=== PATIENT | female | born 1995 | race Caucasian/White ===

== ENCOUNTER 2017-07-17 16:40 | Emergency (ER) | payer BC | END 2017-07-17 19:18 | disposition home or self-care (01) | LOC: D.ER 16:40 | DX: S93.401A Sprain of unspecified ligament of right ankle, initial encounter (principal); V49.9XXA Car occupant (driver) (passenger) injured in unspecified traffic accident, initial encounter; Y93.89 Activity, other specified; Y92.89 Other specified places as the place of occurrence of the external cause; K21.9 Gastro-esophageal reflux disease without esophagitis ==

== ENCOUNTER 2019-08-28 08:10 | Day surgery (SDC) | payer OTHER ==
[~2019-08-28] VITALS: Ht 167.6 cm; Wt 104.3 kg
[~2019-08-28 08:10] MED LIST: CLONAZEPAM 0.25 MG PO; EFFEXOR XR75 MG PO; MOBIC7.5 MG PO
[2019-08-28 08:28] LABS: HEMATOCRIT 38.4 % (36.0-48.0); HEMOGLOBIN 12.7 g/dL (12-16); MCH 27.9 pg (26.0-34.0); MCHC 33.1 g/dL (31.0-37.0); MCV 84.2 fL (80.0-100.0); MEAN PLATELET VOLUME 9.8 fL (7.4-10.4); RBC 4.56 10x6/uL (4.00-5.40); RDW 12.3 % (11.5-14.5); WBC 4.9 10x3/uL (4.8-10.8)
[2019-08-28 08:45] VITALS: BP 110/62; Ht 167.6 cm; Wt 104.3 kg
[2019-08-28 08:53] LABS: HCG URINE NEGATIVE (NEGATIVE)
[2019-08-28] MEDS ORDERED: HYDROCODON-ACE1 EAC7 PO (11:18)
--- NOTE | 2019-08-28 13:49 | NUR ---
1330 IV DC'D WITH CATH INTACT STATES READY FOR RELEASE GETTING DRESSED DC INSTS GIVEN VOICED UNDERSTANDING RELEASED IN WC WITH ESCORT. [employer].
== END 2019-08-28 13:30 | disposition home or self-care (01) ==
LOC: D.OPS 08:10
PROVIDERS: Anesthesiology; ATTEND Surgery
DX: K80.20 Calculus of gallbladder without cholecystitis without obstruction (principal)